=== PATIENT | female | born 1955 | race Caucasian/White ===

== ENCOUNTER 2017-06-25 20:50 | Emergency (ER) | payer OTHER ==
[~2017-06-25] VITALS: Ht 152.4 cm; Wt 80.0 kg
[2017-06-25 21:00] VITALS: TEMP 36.4; Ht 152.4 cm; Wt 80.0 kg
[2017-06-25] MEDS ORDERED: SODIUM CHLORIDE 0.9% 1000ML 1,000 ML IV STA (21:40)
--- NOTE | 2017-06-25 22:15 | EMERGENCY ROOM VISIT NOTE ---
History Report prepared by Ani: Allegra Loyola Under the Supervision of: Dr. Vic Lema M.D. First contact with patient: 21:31 Chief Complaint: ALTERED MENTAL STATUS Stated Complaint: STUMBLING AND INCOHERENT, NAUSEATED Nursing Triage Summary: At daughter's house for dinner, had some wine, came out of bathroom stumbling, doesn't think this was from being drunk, like she couldn't control her muscles. Some confusion initially, now oriented person, place, and time. Feels lightheaded and dizzy. Fell at her house without injury. Left face/arm/leg has slight numbness to light touch compared to right. 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 The patient went to her daughter's house for dinner and had a couple of glasses of wine while she was there. She states that this is not unusual for her to drink wine and she did not feel intoxicated afterwards. Around 5pm the patient began feeling dizzy, lightheaded, and "disoriented." She went to the bathroom and stumbled when she was walking out. She states that she did not feel "drunk" but she felt very "disoriented." The patient and her returned to their own home and the patient fell walking in the front door. She denies any injury from the fall but states that "It felt like my legs weren't working." She crawled into her bedroom and got into bed. The patient states that she is still feeling lightheaded. She is also nauseated but denies any vomiting. reports some changes in her speech. The patient states that she has felt fine for the past couple of days. She notes that they moved to the area 3 weeks ago and she has been busier than usual dealing with that. The patient took a muscle relaxer last night because she was sore from moving. She has been trying to drink fluids and stay hydrated, but she states that all she had to eat or drink before dinner today was a yogurt and a cup of coffee. The patient denies headache, chest pain, and urinary symptoms. She denies any personal history of NV or stroke. She denies any recent changes to her medications. She does report a history of vertigo, but states that today's symptoms feel different. Source of History: patient Onset: SLAG MIXER Position: other (global) Quality: other (disoriented) Timing: other (episode) Modifying Factors (Worsening): other (walking) Associated Symptoms: + nausea, No headache, No chest pain, No vomiting, No urinary symptoms Note: Pt notes dizziness and lightheadedness. Review of Systems See HPI for pertinent positives & negatives. A total of 10 systems reviewed and were otherwise negative. Past Medical & Surgical Medical Problems: (1) Asthma (2) Borderline diabetic (3) Deformity of left foot (4) Osteoarthritis (5) Pseudogout of left knee (6) Vertigo Family History Cancer FH: heart disease FHx: gallbladder disease FHx: lung disease Hypertension Social History Smoking Status: Never Smoker Smokeless Tobacco Use: No Alcohol Use: occasionally Marital Status: Housing Status: lives with significant other Occupation Status: retired Current/Historical Medications Scheduled Acetaminophen/Codeine (Tylenol W/Codeine #3), 1 TAB PO Q2D Budesonide/Formoterol Fumarate (Symbicort 160/4.5 Inhaler), 2 PUFFS INH BID Clobetasol Propionate (Temovate), 1 APPLN TOP BID Colchicine (Colcrys), 0.6 MG PO DAILY Famotidine (Pepcid), 40 MG PO DAILY Fluticasone Propionate (Nasal) (Flonase Allergy Relief), 2 SPRAYS KATHERIN DAILY Ropinirole (Requip), 1 MG PO HS Topiramate (Topamax ), 25 MG PO DAILY Scheduled PRN Cyclobenzaprine Hcl (Flexeril), 10 MG PO TID PRN for Muscle Spasms Epinephrine (Epipen), 0.3 MG IM UD PRN for ALLERGIC REACTION Allergies Coded Allergies: BEE STING (Verified Allergy, Severe, ANAPHYLAXIS, 06/25/17) Cefaclor (Verified Allergy, Intermediate, HIVES, 06/25/17) Physical Exam Vital Signs Date Time Temp Pulse Resp B/P (MAP) Pulse Ox O2 Delivery O2 Flow Rate FiO2 06/26/17 01:08 80 06/26/17 01:01 105/60 06/26/17 01:00 79 19 94 06/26/17 00:45 73 23 94 06/26/17 00:30 77 22 112/63 95 06/26/17 00:15 95 15 8/21/17 00:10 81 22 96 06/26/17 00:00 121/85 06/25/17 23:55 82 21 95 06/25/17 23:40 82 20 97 06/25/17 23:30 113/62 06/25/17 23:25 83 18 95 06/25/17 23:19 78 19 128/74 94 06/25/17 23:18 128/74 06/25/17 23:10 75 17 95 06/25/17 23:05 70 21 95 06/25/17 22:50 81 16 95 06/25/17 22:25 82 20 116/83 93 Room Air 06/25/17 22:24 116/83 06/25/17 22:20 83 19 06/25/17 22:14 Room Air 06/25/17 22:05 81 15 95 06/25/17 21:50 81 23 94 06/25/17 21:35 82 21 97 06/25/17 21:16 87 06/25/17 21:12 129/86 06/25/17 21:00 36.4 84 18 129/83 94 Room Air Physical Exam GENERAL: Patient is in no acute distress. HEENT: No acute trauma, normocephalic atraumatic, mucous membranes moist, no nasal congestion, no scleral icterus. NECK: No stridor, no adenopathy, no meningismus, trachea is midline. LUNGS: Clear to auscultation bilaterally, no wheeze, no rhonchi, breath sounds equal. HEART: Without murmurs gallops or rubs, regular rate and rhythm. ABDOMEN: Soft, nontender, bowel sounds positive, no hernias, no peritonitis. EXTREMITIES: Left lower leg has atrophy which is chronic. No cellulitis to either lower extremity. No acute trauma noted. NEUROLOGIC: Oriented x 3, no acute motor or sensory deficits, no focal weakness. No speech slur or facial droop, no pronator drift or cerebellar dysfunction. SKIN: No rash, no jaundice, no diaphoresis. Medical Decision & Procedures ER Provider Diagnostic Interpretation: Radiology results as stated below per my review and radiologist interpretation: CT SCAN OF THE BRAIN WITHOUT IV CONTRAST CLINICAL HISTORY: Change in mental status. Stroke like symptoms. COMPARISON STUDY: No priors. TECHNIQUE: Unenhanced axial CT scan of the brain is performed from the vertex to the skull base. Automated dose control exposure was utilized. A dose lowering technique was utilized adhering to the principles of ALARA. CT DOSE: 537.48 mGy.cm FINDINGS: Brain parenchyma: The brain parenchyma is normal in appearance. There is no hemorrhage, mass effect, or evidence of acute territorial ischemia by CT criteria. Kruger-white matter is preserved. No extra-axial fluid collection is seen. Ventricles, sulci, cisterns: Normal in configuration. Intracranial vasculature: The visualized intracranial vasculature at the skull base is normal in appearance. Calvarium: Unremarkable. Sinuses and mastoids: Trace mucosal thickening is seen in the ethmoid sinuses. The remaining visualized paranasal sinuses are clear. The mastoid air cells are well pneumatized. Orbits: The bony orbits are grossly intact. IMPRESSION: There is no hemorrhage, mass effect, or evidence of acute territorial ischemia by CT criteria. Electronically signed by: Vic Peraza M.D. 06/25/2017 10:43 PM Dictated Date/Time: 06/25/2017 10:41 PM Laboratory Results 06/25/17 22:19 Red Blood Count 4.72, Mean Corpuscular Volume 93.2, Mean Corpuscular Hemoglobin 31.8, Mean Corpuscular Hemoglobin Concent 34.1, Mean Platelet Volume 9.6, Neutrophils (%) (Auto) 77.3, Lymphocytes (%) (Auto) 18.6, Monocytes (%) (Auto) 3.3, Eosinophils (%) (Auto) 0.4, Basophils (%) (Auto) 0.2, Neutrophils # (Auto) 3.49, Lymphocytes # (Auto) 0.84, Monocytes # (Auto) 0.15, Eosinophils # (Auto) 0.02, Basophils # (Auto) 0.01 06/25/17 22:19 Test 06/25/17 21:16 06/25/17 22:19 06/25/17 22:35 Bedside Glucose 93 mg/dl (70-90) White Blood Count 4.52 K/uL (4.8-10.8) Red Blood Count 4.72 M/uL (4.2-5.4) Hemoglobin 15.0 g/dL (12.0-16.0) Hematocrit 44.0 % (37-47) Mean Corpuscular Volume 93.2 fL (80-100) Mean Corpuscular Hemoglobin 31.8 pg (25-34) Mean Corpuscular Hemoglobin Concent 34.1 g/dl (32-36) Platelet Count 221 K/uL (130-400) Mean Platelet Volume 9.6 fL (7.4-10.4) Neutrophils (%) (Auto) 77.3 % Lymphocytes (%) (Auto) 18.6 % Monocytes (%) (Auto) 3.3 % Eosinophils (%) (Auto) 0.4 % Basophils (%) (Auto) 0.2 % Neutrophils # (Auto) 3.49 K/uL (1.4-6.5) Lymphocytes # (Auto) 0.84 K/uL (1.2-3.4) Monocytes # (Auto) 0.15 K/uL (0.11-0.59) Eosinophils # (Auto) 0.02 K/uL (0-0.5) Basophils # (Auto) 0.01 K/uL (0-0.2) RDW Standard Deviation 41.5 fL (36.4-46.3) RDW Coefficient of Variation 12.3 % (11.5-14.5) Immature Granulocyte % (Auto) 0.2 % Immature Granulocyte # (Auto) 0.01 K/uL (0.00-0.02) Prothrombin Time 10.5 SECONDS (9.0-12.0) Prothromb Time International Ratio 1.0 (0.9-1.1) Activated Partial Thromboplast Time 27.8 SECONDS (21.0-31.0) Partial Thromboplastin Ratio 1.1 Anion Gap 9.0 mmol/L (3-11) Est Creatinine Clear Calc Drug Dose 67.4 ml/min Estimated GFR () 90.9 Estimated GFR (Non- 78.5 BUN/Creatinine Ratio 20.9 (10-20) Calcium Level 8.2 mg/dl (8.5-10.1) Total Bilirubin 0.2 mg/dl (0.2-1) Direct Bilirubin < 0.1 mg/dl (0-0.2) Aspartate Amino Transf (AST/SGOT) 39 U/L (15-37) Alanine Aminotransferase (ALT/SGPT) 53 U/L (12-78) Alkaline Phosphatase 130 U/L (45-117) Total Creatine Kinase 118 U/L (26-192) Creatine Kinase MB 1.3 ng/ml (0.5-3.6) Creatine Kinase MB Ratio 1.1 (0-3.0) Troponin I < 0.015 ng/ml (0-0.045) Total Protein 7.7 gm/dl (6.4-8.2) Albumin 3.8 gm/dl (3.4-5.0) Ethyl Alcohol mg/dL 127.0 mg/dl (0-3) Urine Color ORANGE Urine Appearance CLEAR (CLEAR) Urine pH 6.5 (4.5-7.5) Urine Specific [place] 1.013 (1.000-1.030) Urine Protein NEG (NEG) Urine Glucose (UA) NEG (NEG) Urine Ketones NEG (NEG) Urine Occult Blood NEG (NEG) Urine Nitrite NEG (NEG) Urine Bilirubin NEG (NEG) Urine Urobilinogen NEG (NEG) Urine Leukocyte Esterase TRACE (NEG) Urine WBC (Auto) 1-5 /hpf (0-5) Urine RBC (Auto) 0-4 /hpf (0-4) Urine Hyaline Casts (Auto) 0 /lpf (0-5) Urine Epithelial Cells (Auto) 5-10 /lpf (0-5) Urine Bacteria (Auto) NEG (NEG) Urine Opiates Screen NEG (NEG) Urine Methadone, Qualitative NEG (NEG) Urine Barbiturates NEG (NEG) Urine Phencyclidine (PCP) Level NEG (NEG) Ur Amphetamine/Methamphetamine NEG (NEG) MDMA (Ecstasy) Screen NEG (NEG) Urine Benzodiazepines Screen NEG (NEG) Urine Cocaine Metabolite NEG (NEG) Urine Marijuana (THC) NEG (NEG) Laboratory results reviewed by me. Medications Administered Medications (Trade) Dose Ordered Sig/Darrick Route Start Time Stop Time Status Last Admin Dose Admin Sodium Chloride 1,000 ml @ 999 mls/hr Q1H1M STAT IV 06/25/17 21:40 06/25/17 22:40 DC 06/25/17 22:45 999 MLS/HR ECG Indication: altered mental status Rate (beats per minute): 77 Rhythm: normal sinus Findings: no acute ischemic change, no ectopy Comparison ECG Date: no prior available ED Course 2130: The patient was evaluated in room B6. A complete history and physical exam was performed. 2139: NSS 1000 ml @ 999 mls/hr IV 8: I reevaluated the patient and she is feeling better. She states that her symptoms have resolved. 0030: I reassessed the patient at this time. She is feeling better and resting comfortably. I discussed the results and treatment plan with the patient. I answered all pertaining questions that she had. She expressed understanding and verbalized agreement. The patient will be discharged home. Medical Decision Differential diagnoses includes vertigo, dehydration, alcohol use, stroke, anemia, UTI, electrolyte imbalance. There is no leukocytosis or concerning anemia. No significant electrolyte abnormality, no kidney failure. There were a few very minimal liver enzyme elevations. EKG shows a sinus rhythm, no acute ischemia. Cardiac enzyme testing times one is not consistent with acute cardiac injury. Brain CT shows no acute bleed or mass effect. Urinalysis does not show infection. Urine tox is negative. Alcohol level is around 120, consistent with her alcohol use. The patient received IV saline, she has done well. Her symptoms have resolved. On exam, she does not have any focal neurologic deficit. I suspect her presentation today was secondary to some dehydration, fatigue and her alcohol use. She has been reassured. She is being discharged home. Medication Reconcilliation Current Medication List: was personally reviewed by me Blood Pressure Screening Patient's blood pressure: Normal blood pressure Impression Primary Impression: Weakness Additional Impression: Confusion Scribe Attestation The scribe's documentation has been prepared under my direction and personally reviewed by me in its entirety. I confirm that the note above accurately reflects all work, treatment, procedures, and medical decision making performed by me. Departure Information Dispostion Home / Self-Care Referrals No Doctor, Assigned Forms HOME CARE DOCUMENTATION FORM, IMPORTANT VISIT INFORMATION Patient Instructions My [facility] Additional Instructions fluids rest return if worsening testing today was ok as we discussed Stroke History Time Last Known Well 4.5 hours SLAG MIXER Stroke t-PA Criteria Reviewed Does NOT meet criteria for t-PA Reason t-PA Not Given Treatment not indicated Problem Qualifiers
--- NOTE | 2017-06-25 22:44 | DIAGNOSTIC IMAGING REPORT ---
CT SCAN OF THE BRAIN WITHOUT IV CONTRAST CLINICAL HISTORY: Change in mental status. Stroke like symptoms. COMPARISON STUDY: No priors. TECHNIQUE: Unenhanced axial CT scan of the brain is performed from the vertex to the skull base. Automated dose control exposure was utilized. A dose lowering technique was utilized adhering to the principles of ALARA. CT DOSE: 537.48 mGy.cm FINDINGS: Brain parenchyma: The brain parenchyma is normal in appearance. There is no hemorrhage, mass effect, or evidence of acute territorial ischemia by CT criteria. Kruger-white matter is preserved. No extra-axial fluid collection is seen. Ventricles, sulci, cisterns: Normal in configuration. Intracranial vasculature: The visualized intracranial vasculature at the skull base is normal in appearance. Calvarium: Unremarkable. Sinuses and mastoids: Trace mucosal thickening is seen in the ethmoid sinuses. The remaining visualized paranasal sinuses are clear. The mastoid air cells are well pneumatized. Orbits: The bony orbits are grossly intact. IMPRESSION: There is no hemorrhage, mass effect, or evidence of acute territorial ischemia by CT criteria. Electronically signed by: Vic Peraza M.D. 06/25/2017 10:43 PM Dictated Date/Time: 06/25/2017 10:41 PM
[2017-06-25 22:45] LABS: BASO % 0.2 %; BASO ABS # 0.01 K/uL (0-0.2); COMPLETE YES; EOS % 0.4 %; IG% 0.2 %; LYMPH % 18.6 %; LYMPH ABS # 0.84 K/uL (1.2-3.4); MEAN CELL VOLUME 93.2 fL (80-100); MEAN CORPUSCULAR HEMOGLOBIN 31.8 pg (25-34); MEAN CORPUSCULAR HGB CONC 34.1 g/dl (32-36); MEAN PLATELET VOLUME 9.6 fL (7.4-10.4); MONO % 3.3 %; NEUT % 77.3 %; PLATELET COUNT 221 K/uL (130-400); RED BLOOD COUNT 4.72 M/uL (4.2-5.4); WHITE BLOOD COUNT 4.52 K/uL (4.8-10.8)
[2017-06-25 22:47] LABS: PARTIAL THROMBOPLASTIN RATIO 1.1; PROTHROMBIN TIME (PATIENT) 10.5 SECONDS (9.0-12.0)
[2017-06-25 23:07] LABS: URINE APPEARANCE CLEAR (CLEAR); URINE BILIRUBIN NEG (NEG); URINE COLOR ORANGE; URINE NITRITE NEG (NEG); URINE PH 6.5 (4.5-7.5); URINE SPECIFIC GRAVITY 1.013 (1.000-1.030); UROBILINOGEN NEG (NEG); ZZUR CULT IF INDIC CLEAN CATCH NO
[2017-06-25 23:09] LABS: MANUAL MICROSCOPIC REQUIRED? NO; REVIEW REQ? NO
[2017-06-25 23:19] LABS: ALT/SGPT 53 U/L (12-78); BLOOD UREA NITROGEN 17 mg/dl (7-18); BUN/CREATININE RATIO 20.9 (10-20); CALCIUM 8.2 mg/dl (8.5-10.1); CARBON DIOXIDE 26 mmol/L (21-32); CHLORIDE 107 mmol/L (98-107); GLUCOSE 99 mg/dl (70-99); POTASSIUM 3.5 mmol/L (3.5-5.1); SODIUM 142 mmol/L (136-145)
[2017-06-25 23:24] LABS: ALKALINE PHOSPHATASE 130 U/L (45-117); AST/SGOT 39 U/L (15-37); CKMB/CK RATIO 1.1 (0-3.0)
[2017-06-25] MEDS ORDERED: EPP3/2 IM (23:48)
[2017-06-25] MEDS ORDERED: TOPI25TA99 PO (23:48)
[2017-06-25] MEDS ORDERED: FAMO40TA6 PO (23:50)
[2017-06-25] MEDS ORDERED: CLC6 PO (23:50)
[2017-06-25] MEDS ORDERED: CYCL10TA6 PO (23:50)
[2017-06-25] MEDS ORDERED: SYMIN160 INH (23:50)
[2017-06-25] MEDS ORDERED: ROPI1TAB PO (23:51)
[2017-06-25] MEDS ORDERED: CLOB-77 TOP (23:51)
[2017-06-25] MEDS ORDERED: FLUT0.15 NAE (23:52)
[2017-06-25] MEDS ORDERED: ACET-749 PO (23:52)
[2017-06-26 00:39] LABS: BENZODIAZEPINE, URINE NEG (NEG); COCAINE,URINE NEG (NEG); PHENCYCLIDINE, URINE NEG (NEG)
[2017-06-26 01:00] VITALS: O2SAT 94
[2017-06-26 01:01] VITALS: BP 105/60
[2017-06-26 01:08] VITALS: PULSE 80
== END 2017-06-26 01:11 | disposition home or self-care (01) ==
LOC: C.EDB 20:52
DX: R53.1 Weakness (principal); R41.0 Disorientation, unspecified; J45.909 Unspecified asthma, uncomplicated; R73.03 Prediabetes; M19.90 Unspecified osteoarthritis, unspecified site; Z80.9 Family history of malignant neoplasm, unspecified; Z82.49 Family history of ischemic heart disease and other diseases of the circulatory system; Z83.79 Family history of other diseases of the digestive system; Z83.6 Family history of other diseases of the respiratory system; Z79.899 Other long term (current) drug therapy